=== PATIENT | female | born 1950 | race Hispanic/Latino ===

== ENCOUNTER 2017-06-26 13:39 | Observation (INO) | payer OTHER ==
[~2017-06-26] VITALS: Ht 152.4 cm; Wt 58.2 kg
[~2017-06-26 13:39] MED LIST: ACET-66 PO; ATOR10 PO; CHOL500050 PO; EXEN2VIA SQ; LA/L175C PO; LISI-617 PO; MESA0.37 PO; METF-526 PO; PREN-18 PO; [UNRECOGNIZED DRUG - CODE] PO
[2017-06-26 14:17] LABS: BASOPHILS % (AUTO) 0.4 % (0.0-5.0); EOSINOPHILS % (AUTO) 1.3 % (0.0-8.0); LYMPHOCYTES % (AUTO) 29.6 % (21.0-51.0); MEAN CORPUSCULAR HEMOGLOBIN 29.6 pg (27.0-33.0); MEAN CORPUSCULAR HGB CONC 33.7 g/dL (32.0-36.0); MEAN CORPUSCULAR VOLUME 87.8 fL (79-99); MONOCYTES % (AUTO) 8.6 % (3.0-13.0); NEUTROPHILS % (AUTO) 60.1 % (40.0-77.0); PLATELET COUNT (AUTO) 301 K/uL (130-400); RED BLOOD CELL COUNT(AUTO) 4.55 MIL/uL (4.00-5.50); RED CELL DISTRIBUTION WIDTH 13.3 % (11.0-15.5); WHITE BLOOD COUNT (AUTO) 16.8 K/uL (4.8-10.8)
[2017-06-26 14:23] LABS: CREATININE 0.7 mg/dL (0.5-1.5); POTASSIUM 4.1 mmol/L (3.5-5.1)
[2017-06-26 14:27] LABS: ALBUMIN 3.4 g/dL (3.5-5.0); BILIRUBIN,TOTAL 0.3 mg/dL (0.2-1.0); TOTAL PROTEIN, SERUM 8.2 g/dL (6.0-8.3)
[2017-06-26 14:50] LABS: APPEARANCE,URINE Clear (CLEAR); BILIRUBIN,URINE Negative (NEGATIVE); COLOR,URINE Yellow (YELLOW); GLUCOSE, URINE (UA) Negative (NEGATIVE); KETONES,URINE Negative (NEGATIVE); LEUKOCYTE ESTERASE ,URINE Moderate (NEGATIVE); NITRATE,URINE Negative (NEGATIVE); OCCULT BLOOD,URINE Negative (NEGATIVE); PROTEIN,URINE Negative (NEGATIVE); UROBILINOGEN,URINE 0.2 mg/dL (0.2-1.0)
[2017-06-26 14:58] LABS: BACTERIA,URINE None Seen /HPF (None Seen); RBC,URINE 0-1 /HPF (0-1); SQUAMOUS EPITHELIAL CELL,UR 0-2 /HPF (0-2)
[2017-06-26] MEDS ORDERED: PREDNISONE 20 MG TABLET ONE (16:17)
[2017-06-26] MEDS ORDERED: METRONIDAZOLE 500 MG TABLET ONE (16:17)
[2017-06-26] MEDS ORDERED: LACTULOSE 20 GM/30 ML UDCUP PO SCH (17:15)
[2017-06-26] MEDS ORDERED: PEG 3350/NA SULF,BICARB,CL/KCL 4000 ML SOLN PO SCH (17:15)
[2017-06-26] MEDS ORDERED: MAGNESIUM CITRATE 296 ML SOLUTION PO SCH (17:15)
[2017-06-26 17:18] VITALS: BP 124/70
[2017-06-26] MEDS ORDERED: LACTULOSE 20 GM/30 ML UDCUP ONE (17:26)
[2017-06-26] MEDS ORDERED: DEXTROSE 50%-WATER 50 ML DISP.SYRIN IV PRN ×2 (17:45→22:30)
[2017-06-26] MEDS ORDERED: POTASSIUM CHLORIDE 20 MEQ ERTAB PO PRN ×2 (17:45→22:30)
[2017-06-26] MEDS ORDERED: ACETAMINOPHEN 325 MG TAB PO PRN ×2 (17:45)
[2017-06-26] MEDS ORDERED: GLUCAGON 1MG KIT 1 MG ML IM PRN ×2 (17:45→22:30)
[2017-06-26] MEDS ORDERED: TRAMADOL HCL 50 MG TABLET PO PRN (17:45)
[2017-06-26] MEDS ORDERED: POTASSIUM CHLORIDE 10% ELIXIR 20 MEQ/15 ML UDCUP PO PRN ×2 (17:45→22:30)
[2017-06-26] MEDS ORDERED: POTASSIUM CHLORIDE 20MEQ/100ML 100 ML IV PRN ×2 (17:45→22:30)
[2017-06-26] MEDS ORDERED: ONDANSETRON HCL 4 MG/2 ML VIAL IVP PRN (17:45)
[2017-06-26] MEDS ORDERED: LIDOCAINE HCL-MPF 1% 2ML VIAL IJ PRN (17:45)
[2017-06-26 18:07] LABS: HEMATOCRIT 38.3 % (36-48)
[2017-06-26] MEDS ORDERED: DULA0.75 SQ (18:37)
[2017-06-26] MEDS ORDERED: ADAL40PE SQ (18:40)
[2017-06-26 19:00] VITALS: BP 117/71
[2017-06-26] MEDS: LEVOFLOXACIN 500 MG TABLET PO SCH (20:02)
[2017-06-26] MEDS: SODIUM CHLORIDE 0.9% 1000ML 1,000 ML IV SCH (20:02)
[2017-06-26] MEDS: METRONIDAZOLE 500 MG TABLET PO SCH (20:02)
[2017-06-26] MEDS: MESALAMINE 4 GM/60 ML BOTTLE RC SCH (20:03)
[2017-06-26] MEDS: INSULIN R PO SSI SQ SCH (21:00)
[2017-06-26] MEDS ORDERED: LIDOCAINE HCL-MPF 1% 2ML VIAL IVP PRN (22:30)
[2017-06-26] MEDS: INSULIN HUMULIN R 100 UNIT/ML 3ML SQ SCH (22:30)
[2017-06-26 23:00] VITALS: BP 117/72
[2017-06-27] VITALS (22 sets, daily range): BP systolic 92–134; BP diastolic 40–77
[2017-06-27] MEDS: INSULIN HUMULIN R 100 UNIT/ML 3ML SQ SCH ×3 (04:30→16:30)
[2017-06-27 06:06] LABS: MEAN CORPUSCULAR HEMOGLOBIN 29.6 pg (27.0-33.0); MEAN CORPUSCULAR HGB CONC 33.7 g/dL (32.0-36.0); PLATELET COUNT (AUTO) 352 K/uL (130-400); RED BLOOD CELL COUNT(AUTO) 4.32 MIL/uL (4.00-5.50); RED CELL DISTRIBUTION WIDTH 13.1 % (11.0-15.5)
[2017-06-27 06:17] LABS: CREATININE 0.9 mg/dL (0.5-1.5); INR 0.95 (0.85-1.15); POTASSIUM 3.9 mmol/L (3.5-5.1)
[2017-06-27] MEDS: INSULIN R PO SSI SQ SCH ×4 (07:30→21:09)
[2017-06-27] MEDS: SODIUM CHLORIDE 0.9% 1000ML 1,000 ML IV SCH (08:52)
[2017-06-27] MEDS: METRONIDAZOLE 500 MG TABLET PO SCH ×3 (09:00→20:58)
[2017-06-27] MEDS ORDERED: PROPOFOL 10 MG/ML 20ML VIAL IV ONE (11:06)
[2017-06-27] MEDS: PREDNISONE 20 MG TABLET PO SCH (16:00)
[2017-06-27] MEDS: PRENATAL VITAMIN RX TABLET PO SCH (16:00)
[2017-06-27] MEDS: LEVOFLOXACIN 500 MG TABLET PO SCH (17:42)
[2017-06-27] MEDS: MESALAMINE 4 GM/60 ML BOTTLE RC SCH (20:58)
[2017-06-28 00:25] VITALS: BP 91/52
[2017-06-28 04:25] VITALS: BP 91/50
[2017-06-28] MEDS: INSULIN R PO SSI SQ SCH ×2 (05:34→11:30)
[2017-06-28 05:46] LABS: MEAN CORPUSCULAR HEMOGLOBIN 30.9 pg (27.0-33.0); MEAN CORPUSCULAR HGB CONC 35.1 g/dL (32.0-36.0); MEAN CORPUSCULAR VOLUME 88.2 fL (79-99); PLATELET COUNT (AUTO) 319 K/uL (130-400); RED BLOOD CELL COUNT(AUTO) 4.09 MIL/uL (4.00-5.50); RED CELL DISTRIBUTION WIDTH 13.1 % (11.0-15.5); WHITE BLOOD COUNT (AUTO) 9.2 K/uL (4.8-10.8)
[2017-06-28 05:50] LABS: CREATININE 0.8 mg/dL (0.5-1.5); POTASSIUM 3.8 mmol/L (3.5-5.1)
[2017-06-28 08:12] VITALS: BP 91/52
[2017-06-28] MEDS: METRONIDAZOLE 500 MG TABLET PO SCH ×2 (09:11→14:29)
[2017-06-28] MEDS: PRENATAL VITAMIN RX TABLET PO SCH (09:11)
[2017-06-28] MEDS: PREDNISONE 20 MG TABLET PO SCH (09:11)
[2017-06-28] MEDS ORDERED: MESA4ENE4 RC (09:37)
[2017-06-28 11:50] VITALS: BP 110/57
[2017-06-29] MEDS ORDERED: PREDNISONE 10 MG TABLET PO SCH (09:00)
[2017-07-06] MEDS ORDERED: PREDNISONE 20 MG TABLET PO SCH (09:00)
[2017-07-11] MEDS ORDERED: ADALIMUMAB 40 MG SQ SCH (09:00)
[2017-07-13] MEDS ORDERED: PREDNISONE 10 MG TABLET PO SCH (09:00)
[2017-07-20] MEDS ORDERED: PREDNISONE 5 MG TABLET PO SCH (09:00)
[2017-07-27] MEDS ORDERED: PREDNISONE 5 MG TABLET PO SCH (09:00)
== END 2017-06-28 15:30 | disposition home or self-care (01) ==
LOC: EDH 13:39 → EDHIP 15:25 → 3BH 17:06
PROVIDERS: ADMIT Internal Medicine; ATTEND Internal Medicine
DX: K51.90 Ulcerative colitis, unspecified, without complications (principal); A09 Infectious gastroenteritis and colitis, unspecified; D12.5 Benign neoplasm of sigmoid colon; K63.5 Polyp of colon; K63.89 Other specified diseases of intestine; K62.89 Other specified diseases of anus and rectum; E11.65 Type 2 diabetes mellitus with hyperglycemia; D72.829 Elevated white blood cell count, unspecified; E78.5 Hyperlipidemia, unspecified; N39.0 Urinary tract infection, site not specified; Z90.710 Acquired absence of both cervix and uterus; Z80.0 Family history of malignant neoplasm of digestive organs; Z83.3 Family history of diabetes mellitus; Z86.010 Personal history of colon polyps; Z90.721 Acquired absence of ovaries, unilateral
CPT/HCPCS: 36415 ×3; 45380; 45385; 71046; 80048 ×2; 80053; 81001; 82948 ×8; 85014; 85018; 85025; 85027 ×2; 85610; 85651; 86850; 86900; 86901; 87046; 87177; 87205; 88305; 88312; 96372; 99285; G0378 ×48; J1815; J2405; J2704; J7030; 96360; 96361

== ENCOUNTER 2017-07-29 09:32 | Inpatient (IN) | payer OTHER ==
[~2017-07-29] VITALS: Ht 152.4 cm; Wt 57.2 kg
[~2017-07-29 09:32] MED LIST changes: +ADAL40PE SQ; -ATOR10 PO; +DULA0.75 SQ; -EXEN2VIA SQ; -LA/L175C PO; -LISI-617 PO; -MESA0.37 PO; +MESA4ENE4 RC; -METF-526 PO; -[UNRECOGNIZED DRUG - CODE] PO
[2017-07-29 10:09] LABS: BASOPHILS % (AUTO) 0.3 % (0.0-5.0); EOSINOPHILS % (AUTO) 0.1 % (0.0-8.0); HEMATOCRIT 38.3 % (36-48); LYMPHOCYTES % (AUTO) 23.8 % (21.0-51.0); MEAN CORPUSCULAR HEMOGLOBIN 29.6 pg (27.0-33.0); MEAN CORPUSCULAR VOLUME 87.2 fL (79-99); MONOCYTES % (AUTO) 11.8 % (3.0-13.0); PLATELET COUNT (AUTO) 399 K/uL (130-400); RED BLOOD CELL COUNT(AUTO) 4.39 MIL/uL (4.00-5.50); WHITE BLOOD COUNT (AUTO) 16.3 K/uL (4.8-10.8)
[2017-07-29 10:16] LABS: CREATININE 0.9 mg/dL (0.5-1.5); POTASSIUM 3.3 mmol/L (3.5-5.1)
[2017-07-29 10:22] LABS: ALBUMIN 2.8 g/dL (3.5-5.0); BILIRUBIN,TOTAL 0.5 mg/dL (0.2-1.0); TOTAL PROTEIN, SERUM 8.4 g/dL (6.0-8.3)
[2017-07-29 10:40] LABS: APPEARANCE,URINE Clear (CLEAR); BILIRUBIN,URINE Negative (NEGATIVE); COLOR,URINE Dark Yellow (YELLOW); GLUCOSE, URINE (UA) TRACE mg/dL (NEGATIVE); KETONES,URINE 15 mg/dL (NEGATIVE); LEUKOCYTE ESTERASE ,URINE Trace (NEGATIVE); NITRATE,URINE Negative (NEGATIVE); OCCULT BLOOD,URINE Small (NEGATIVE); PH,URINE 5.5 (5.0-8.0); PROTEIN,URINE POS 1+ (NEGATIVE)
[2017-07-29 11:15] LABS: BACTERIA,URINE Rare /HPF (None Seen); MUCUS,URINE Moderate LPF (None Seen); RBC,URINE 0-1 /HPF (0-1); SQUAMOUS EPITHELIAL CELL,UR Rare /HPF (0-2)
[2017-07-29] MEDS ORDERED: SODIUM CHLORIDE 0.9% 1000ML 1,000 ML IV ONE ×2 (11:24→15:25)
[2017-07-29] MEDS ORDERED: SODIUM CHLORIDE 0.9% 50 ML IV ONE (13:01)
[2017-07-29] MEDS ORDERED: CEFTRIAXONE SODIUM 1 GM ONE (13:01)
[2017-07-29] MEDS ORDERED: ZOSYN 3.375GM+NS 50ML 50 ML IV ONE (15:25)
[2017-07-29 16:50] VITALS: BP 133/54
[2017-07-29] MEDS ORDERED: HYDROCODONE/ACETAMINOPHEN 5/325 MG TAB ONE (18:10)
[2017-07-29 19:40] VITALS: BP 99/55
[2017-07-29] MEDS ORDERED: ONDANSETRON 4 MG TABLET PO PRN (19:45)
[2017-07-29] MEDS ORDERED: ACETAMINOPHEN 325 MG TAB PO PRN (20:15)
[2017-07-29] MEDS ORDERED: LIDOCAINE HCL-MPF 1% 2ML VIAL IVP PRN (20:15)
[2017-07-29] MEDS ORDERED: POTASSIUM CHLORIDE 20MEQ/100ML 100 ML IV PRN (20:15)
[2017-07-29] MEDS ORDERED: POTASSIUM CHLORIDE 10% ELIXIR 20 MEQ/15 ML UDCUP PO PRN ×2 (20:15)
[2017-07-29] MEDS ORDERED: POTASSIUM CHLORIDE 20 MEQ ERTAB PO PRN ×2 (20:15)
[2017-07-29] MEDS: INSULIN HUMULIN R 100 UNIT/ML 3ML SQ SCH (21:00)
[2017-07-29] MEDS: ZOSYN 3.375GM+NS 50ML 50 ML IV SCH (23:19)
[2017-07-30 00:09] VITALS: BP 115/59
[2017-07-30 04:00] VITALS: BP 111/58
[2017-07-30] MEDS: INSULIN HUMULIN R 100 UNIT/ML 3ML SQ SCH ×4 (05:56→20:12)
[2017-07-30] MEDS: ZOSYN 3.375GM+NS 50ML 50 ML IV SCH ×3 (06:01→23:22)
[2017-07-30 08:01] VITALS: BP 106/51
[2017-07-30] MEDS: SODIUM CHLORIDE 0.9% 1000ML 1,000 ML IV SCH ×3 (11:05→21:11)
[2017-07-30 11:37] VITALS: BP 94/54
[2017-07-30] MEDS ORDERED: ACETAMINOPHEN EXTRA STRENGTH 500 MG TABLET PO PRN (13:15)
[2017-07-30] MEDS ORDERED: PHARMACY COMMUNICATION MISC SCH (13:15)
[2017-07-30] MEDS ORDERED: COMPOUND PO MISCELLANEOUS 1 EACH MISC MISC PRN (13:45)
[2017-07-30 16:39] VITALS: BP 105/56
[2017-07-30] MEDS: VANCOMYCIN 250MG/5ML ORAL SOLUTION 40ML PO SCH ×4 (18:31→23:22)
[2017-07-30 19:00] VITALS: BP 103/60
[2017-07-31] VITALS: BP 103/60
[2017-07-31 04:00] VITALS: BP 95/61
[2017-07-31] MEDS: SODIUM CHLORIDE 0.9% 1000ML 1,000 ML IV SCH ×2 (04:31→11:18)
[2017-07-31 04:44] LABS: MEAN CORPUSCULAR HGB CONC 33.6 g/dL (32.0-36.0); MEAN CORPUSCULAR VOLUME 86.3 fL (79-99); PLATELET COUNT (AUTO) 385 K/uL (130-400); RED BLOOD CELL COUNT(AUTO) 3.83 MIL/uL (4.00-5.50); RED CELL DISTRIBUTION WIDTH 13.1 % (11.0-15.5)
[2017-07-31 05:06] LABS: ALBUMIN 2.2 g/dL (3.5-5.0); BILIRUBIN,TOTAL 0.3 mg/dL (0.2-1.0); CREATININE 0.7 mg/dL (0.5-1.5); MAGNESIUM 1.9 mg/dL (1.80-2.40); PHOSPHORUS 2.8 mg/dL (2.5-4.9); TOTAL PROTEIN, SERUM 6.8 g/dL (6.0-8.3)
[2017-07-31 05:08] LABS: POTASSIUM 2.8 mmol/L (3.5-5.1)
[2017-07-31] MEDS: POTASSIUM CHLORIDE 20MEQ/100ML 100 ML IV PRN ×3 (05:24→23:05)
[2017-07-31] MEDS: LIDOCAINE HCL-MPF 1% 2ML VIAL IVP PRN ×3 (05:24→23:05)
[2017-07-31] MEDS: INSULIN HUMULIN R 100 UNIT/ML 3ML SQ SCH ×4 (05:26→21:46)
[2017-07-31] MEDS: ZOSYN 3.375GM+NS 50ML 50 ML IV SCH ×2 (06:04→15:11)
[2017-07-31] MEDS: VANCOMYCIN 250MG/5ML ORAL SOLUTION 40ML PO SCH ×8 (09:36→21:39)
[2017-07-31] MEDS: FE FUMARATE/FA/MV, MIN COMB#15 1 TAB PO SCH (09:36)
[2017-07-31] MEDS ORDERED: DIATR MEGLU/DIATRIZOATE SODIUM 30 ML BOTTLE ONE ×2 (10:40→11:16)
[2017-07-31 11:00] VITALS: BP 113/69
[2017-07-31] MEDS: METHYLPREDNISOLONE SOD SUCC 40MG/ML 1ML IVP SCH ×2 (15:12→21:37)
[2017-07-31] MEDS ORDERED: MAGNESIUM 2GM PREMIX 50ML 50 ML IV SCH (15:45)
[2017-07-31 16:00] VITALS: BP 118/62
[2017-07-31] MEDS: METRONIDAZOLE 500 MG TABLET PO SCH ×2 (18:16→23:04)
[2017-07-31 19:50] VITALS: BP 109/59
[2017-07-31 23:45] VITALS: BP 105/62
[2017-08-01] MEDS: METHYLPREDNISOLONE SOD SUCC 40MG/ML 1ML IVP SCH ×2 (02:28→08:14)
[2017-08-01] MEDS: POTASSIUM CHLORIDE 20MEQ/100ML 100 ML IV PRN (02:29)
[2017-08-01] MEDS: LIDOCAINE HCL-MPF 1% 2ML VIAL IVP PRN (02:36)
[2017-08-01] MEDS: SODIUM CHLORIDE 0.9% 1000ML 1,000 ML IV SCH ×3 (02:36→20:30)
[2017-08-01 03:55] VITALS: BP 102/56
[2017-08-01 05:50] LABS: HEMATOCRIT 32.9 % (36-48); MEAN CORPUSCULAR HEMOGLOBIN 30.1 pg (27.0-33.0); MEAN CORPUSCULAR HGB CONC 34.9 g/dL (32.0-36.0); MEAN CORPUSCULAR VOLUME 86.3 fL (79-99); PLATELET COUNT (AUTO) 392 K/uL (130-400); RED BLOOD CELL COUNT(AUTO) 3.81 MIL/uL (4.00-5.50); WHITE BLOOD COUNT (AUTO) 5.1 K/uL (4.8-10.8)
[2017-08-01 05:57] LABS: CREATININE 0.6 mg/dL (0.5-1.5); MAGNESIUM 2.4 mg/dL (1.80-2.40); PHOSPHORUS 2.8 mg/dL (2.5-4.9); POTASSIUM 3.8 mmol/L (3.5-5.1)
[2017-08-01] MEDS: INSULIN HUMULIN R 100 UNIT/ML 3ML SQ SCH ×4 (06:59→20:33)
[2017-08-01 07:30] VITALS: BP 103/60
[2017-08-01] MEDS: METRONIDAZOLE 500 MG TABLET PO SCH ×3 (08:14→23:15)
[2017-08-01] MEDS: VANCOMYCIN 250MG/5ML ORAL SOLUTION 40ML PO SCH ×6 (08:14→20:31)
[2017-08-01] MEDS: FE FUMARATE/FA/MV, MIN COMB#15 1 TAB PO SCH (08:14)
[2017-08-01 11:00] VITALS: BP 106/64
[2017-08-01 16:00] VITALS: BP 93/66
[2017-08-01 20:10] VITALS: BP 98/54
[2017-08-01 23:45] VITALS: BP 96/61
[2017-08-02 04:20] VITALS: BP 108/60
[2017-08-02] MEDS: METRONIDAZOLE 500 MG TABLET PO SCH ×2 (05:32→15:41)
[2017-08-02] MEDS: SODIUM CHLORIDE 0.9% 1000ML 1,000 ML IV SCH ×2 (05:32→15:41)
[2017-08-02 05:54] LABS: HEMATOCRIT 27.9 % (36-48); MEAN CORPUSCULAR HEMOGLOBIN 29.7 pg (27.0-33.0); MEAN CORPUSCULAR HGB CONC 34.4 g/dL (32.0-36.0); MEAN CORPUSCULAR VOLUME 86.5 fL (79-99); PLATELET COUNT (AUTO) 378 K/uL (130-400); RED BLOOD CELL COUNT(AUTO) 3.23 MIL/uL (4.00-5.50); RED CELL DISTRIBUTION WIDTH 13.3 % (11.0-15.5); WHITE BLOOD COUNT (AUTO) 12.3 K/uL (4.8-10.8)
[2017-08-02] MEDS: INSULIN HUMULIN R 100 UNIT/ML 3ML SQ SCH ×3 (06:22→17:04)
[2017-08-02 07:30] VITALS: BP 96/52
[2017-08-02] MEDS: FE FUMARATE/FA/MV, MIN COMB#15 1 TAB PO SCH (09:34)
[2017-08-02] MEDS: VANCOMYCIN 250MG/5ML ORAL SOLUTION 40ML PO SCH ×6 (09:35→17:44)
[2017-08-02 11:00] VITALS: BP 97/54
[2017-08-02 16:00] VITALS: BP 103/55
[2017-08-02] MEDS ORDERED: VANC250C13 PO (18:34)
[2017-08-02] MEDS ORDERED: METR500T PO (18:34)
[2017-08-02 20:00] VITALS: BP 99/57
[2017-08-06] MEDS ORDERED: Dulaglutide (Trulicity) 0.75 MG SQ SCH (09:00)
[2017-08-06] MEDS ORDERED: ERGOCALCIFEROL (VITAMIN D2) 50,000 UNIT CAPSULE PO SCH (09:00)
== END 2017-08-02 20:35 | disposition home or self-care (01) | DRG 872 ==
LOC: EDH 09:32 → EDHIP 14:38 → 4CH 16:12 → 4BH 07-30 18:44
PROVIDERS: ADMIT Internal Medicine Critical Care Medicine; ATTEND Internal Medicine Critical Care Medicine
DX: A41.9 Sepsis, unspecified organism (principal); A04.72 Enterocolitis due to Clostridium difficile, not specified as recurrent; E44.0 Moderate protein-calorie malnutrition; K51.90 Ulcerative colitis, unspecified, without complications; N39.0 Urinary tract infection, site not specified; D89.9 Disorder involving the immune mechanism, unspecified; E11.9 Type 2 diabetes mellitus without complications; E87.8 Other disorders of electrolyte and fluid balance, not elsewhere classified; Z68.24 Body mass index [BMI] 24.0-24.9, adult; Z88.8 Allergy status to other drugs, medicaments and biological substances
CPT/HCPCS: 36415; 71045; 74176; 80048; 80053; 81001; 82948; 83605; 83735; 83993; 84100; 84132; 85025; 85027; 85651; 86141; 86480; 87040; 87088; 87186; 87324; 87507; J0696; J1815; J2543; J2920; J3370; J3475; J3480; J3490; J7030; Q9963

== ENCOUNTER 2022-05-26 08:41 | Inpatient (IN) | payer OTHER ==
[~2022-05-26] VITALS: Ht 152.4 cm; Wt 57.2 kg
[~2022-05-26 08:41] MED LIST changes: -ADAL40PE SQ; -MESA4ENE4 RC; +METR500T PO; +VANC250C13 PO
[2022-05-26] MEDS ORDERED: LACTATED RINGERS 1000ML 1,000 ML IV ONE (09:00)
[2022-05-26] MEDS ORDERED: ONDANSETRON 4MG INJ IVP ONE (09:00)
[2022-05-26] MEDS ORDERED: MORPHINE 2 MG SYG IVP ONE (09:00)
[2022-05-26] MEDS ORDERED: KETOROLAC 15MG/ML VIAL (15MG/ML) IV ONE (09:00)
[2022-05-26 09:15] LABS: BASOPHILS % (AUTO) 0.1 % (0.0-5.0); EOSINOPHILS % (AUTO) 0.1 % (0.0-8.0); HEMATOCRIT 41.3 % (36-48); LYMPHOCYTES % (AUTO) 25.1 % (21.0-51.0); MEAN CORPUSCULAR HEMOGLOBIN 29.8 pg (27.0-33.0); MEAN CORPUSCULAR HGB CONC 35.1 g/dL (32.0-36.0); MONOCYTES % (AUTO) 7.4 % (3.0-13.0); NEUTROPHILS % (AUTO) 66.8 % (40.0-77.0); PLATELET COUNT (AUTO) 355 K/uL (130-400); RED BLOOD CELL COUNT(AUTO) 4.86 MIL/uL (4.00-5.50); RED CELL DISTRIBUTION WIDTH 12.4 % (11.0-15.5); WHITE BLOOD COUNT (AUTO) 13.8 K/uL (4.8-10.8)
[2022-05-26 09:35] LABS: ALBUMIN 4.1 g/dL (3.5-5.0); CREATININE 0.9 mg/dL (0.5-1.5)
[2022-05-26 09:42] LABS: APPEARANCE,URINE CLEAR (CLEAR); BILIRUBIN,URINE NEGATIVE (NEGATIVE); COLOR,URINE LIGHT-YELLOW (YELLOW); GLUCOSE, URINE (UA) >=1000 mg/dL (NEGATIVE); KETONES,URINE 40 mg/dL (NEGATIVE); LEUKOCYTE ESTERASE ,URINE 250 Leu/uL (NEGATIVE); NITRATE,URINE NEGATIVE (NEGATIVE); OCCULT BLOOD,URINE NEGATIVE (NEGATIVE); PH,URINE 6.5 (5.0-8.0); PROTEIN,URINE 20 mg/dL (NEGATIVE); UROBILINOGEN,URINE 0.2 mg/dL (0.2-1.0)
[2022-05-26 09:46] LABS: POTASSIUM 2.8 mmol/L (3.5-5.1)
[2022-05-26 09:51] LABS: MUCUS,URINE RARE LPF (None Seen)
[2022-05-26 09:58] LABS: BACTERIA,URINE Rare /HPF (None Seen)
[2022-05-26] MEDS ORDERED: KCL 20 MEQ ERTAB PO ONE (10:00)
[2022-05-26 10:21] LABS: CRP QUANTITATIVE < 2.00 mg/L (0.00-9.0)
[2022-05-26] MEDS ORDERED: CEFTRIAXONE 1G VIAL IVP ONE (10:30)
[2022-05-26] MEDS ORDERED: POTASSIUM CHLORIDE 10% ELIXIR 20 MEQ/15 ML UDCUP PO PRN ×2 (12:00→18:00)
[2022-05-26] MEDS ORDERED: GLUCAGON 1MG KIT 1 MG ML IM PRN ×2 (12:00→18:00)
[2022-05-26] MEDS ORDERED: LIDOCAINE HCL-MPF 1% 2ML VIAL IV PRN ×4 (12:00→18:00)
[2022-05-26] MEDS ORDERED: DEXTROSE 50%-WATER 50 ML DISP.SYRIN IV PRN ×2 (12:00→18:00)
[2022-05-26] MEDS ORDERED: MAGNESIUM 2GM PREMIX 50ML 50 ML IV PRN ×2 (12:00→18:00)
[2022-05-26] MEDS ORDERED: ACETAMINOPHEN 650 MG SUPPOSITORY RC PRN (12:00)
[2022-05-26] MEDS ORDERED: CLONIDINE HCL 0.1 MG TABLET PO PRN (12:00)
[2022-05-26] MEDS ORDERED: HYDRALAZINE 20MG/ML VIAL IV PRN (12:00)
[2022-05-26] MEDS ORDERED: POTASSIUM CHLORIDE 20MEQ/100ML 100 ML IV PRN ×4 (12:00→18:00)
[2022-05-26] MEDS ORDERED: KCL 20 MEQ ERTAB PO PRN ×2 (12:00→18:00)
[2022-05-26] MEDS ORDERED: LACTULOSE 20 GM/30 ML UDCUP PO PRN (12:00)
[2022-05-26] MEDS ORDERED: ONDANSETRON 4MG INJ IVP PRN (12:00)
[2022-05-26] MEDS ORDERED: DOCUSATE SODIUM 100 MG CAP PO PRN (12:00)
[2022-05-26] MEDS ORDERED: ACETAMINOPHEN 325 MG TAB PO PRN (12:00)
[2022-05-26] MEDS: MORPHINE 2 MG SYG IVP PRN ×2 (12:57→18:58)
[2022-05-26] MEDS: INSULIN HUMULIN R 100 UNIT/ML 3ML SQ SCH ×2 (16:30→21:00)
[2022-05-26] MEDS ORDERED: MAGNESIUM 2GM PREMIX 50ML 50 ML IV SCH (17:00)
[2022-05-26] MEDS ORDERED: 0.9%NACL 1000ML 1,000 ML IV SCH (17:00)
[2022-05-26] MEDS ORDERED: LACTATED RINGERS 1000ML 1,000 ML IV SCH (17:00)
[2022-05-26] MEDS ORDERED: POTASSIUM CHLORIDE 10MEQ/100ML 100 ML IV PRN (17:00)
[2022-05-26] MEDS ORDERED: INSULIN REGULAR, HUMAN 3ML 100 UNIT in 0.9%NACL 100ML 100 ML IV SCH ×2 (17:00)
[2022-05-26 17:12] LABS: ABG BASE EXCESS 1.1 mmol/L (-2.0-3.0); ABG HCO3 23.3 mmol/L (21.0-28.0); ABG PCO2 31 mmHg (32-45)
[2022-05-26 17:13] LABS: CREATININE 0.7 mg/dL (0.5-1.5); POTASSIUM 3.3 mmol/L (3.5-5.1)
[2022-05-26] MEDS ORDERED: INSULIN REGULAR, HUMAN 3ML 100 UNIT in 0.9%NACL 100ML 99 ML IV PRN ×2 (18:00)
[2022-05-26] MEDS ORDERED: ROSU10TA28 PO (18:25)
[2022-05-26 18:52] LABS: CHOLESTEROL 254 mg/dL (<200); HDL CHOLESTEROL 69 mg/dL (35-85); LDL DIRECT 154 mg/dL (0-99); TRIGLYCERIDES 119 mg/dL (30-200)
[2022-05-26] MEDS: CEFTRIAXONE 2GM VIAL IVP SCH (18:57)
[2022-05-26] MEDS: D5W-1/2 NS/20MEQ KCL 1,000 ML IV SCH (19:23)
[2022-05-26 21:00] VITALS: BP 154/55
[2022-05-26] MEDS: TRAMADOL HCL 50 MG TABLET PO PRN (21:30)
[2022-05-26] MEDS: INSULIN GLARGINE 100 UNITS/ML 10 ML VIAL SQ SCH (21:36)
[2022-05-26 21:51] VITALS: BP 154/66
[2022-05-26 22:00] VITALS: BP 149/86
[2022-05-26 22:18] VITALS: BP 151/71
[2022-05-26 22:45] LABS: CREATININE 0.7 mg/dL (0.5-1.5)
[2022-05-26 22:47] LABS: POTASSIUM 2.8 mmol/L (3.5-5.1)
[2022-05-26 23:00] VITALS: BP 159/86
[2022-05-27] VITALS (11 sets, daily range): BP systolic 120–175; BP diastolic 59–85
[2022-05-27 04:17] LABS: BASOPHILS % (AUTO) 0.3 % (0.0-5.0); EOSINOPHILS % (AUTO) 0.3 % (0.0-8.0); HEMATOCRIT 38.1 % (36-48); LYMPHOCYTES % (AUTO) 24.2 % (21.0-51.0); MEAN CORPUSCULAR HEMOGLOBIN 29.9 pg (27.0-33.0); MEAN CORPUSCULAR HGB CONC 34.6 g/dL (32.0-36.0); MEAN CORPUSCULAR VOLUME 86.4 fL (79-99); MONOCYTES % (AUTO) 7.1 % (3.0-13.0); NEUTROPHILS % (AUTO) 67.6 % (40.0-77.0); PLATELET COUNT (AUTO) 339 K/uL (130-400); RED BLOOD CELL COUNT(AUTO) 4.41 MIL/uL (4.00-5.50); RED CELL DISTRIBUTION WIDTH 12.6 % (11.0-15.5); WHITE BLOOD COUNT (AUTO) 14.7 K/uL (4.8-10.8)
[2022-05-27 04:18] LABS: HEMOGLOBIN A1C 7.9 % (4.0-6.0)
[2022-05-27 04:37] LABS: CREATININE 0.4 mg/dL (0.5-1.5); MAGNESIUM 1.6 mg/dL (1.80-2.40); POTASSIUM 4.2 mmol/L (3.5-5.1); THYROID STIMULATING HORMONE 1.51 uIU/mL (0.36-3.74)
[2022-05-27] MEDS: INSULIN HUMULIN R 100 UNIT/ML 3ML SQ SCH ×4 (06:30→20:23)
[2022-05-27] MEDS: INSULIN GLARGINE 100 UNITS/ML 10 ML VIAL SQ SCH ×2 (06:30→20:27)
[2022-05-27] MEDS: D5W-1/2 NS/20MEQ KCL 1,000 ML IV SCH (06:53)
[2022-05-27] MEDS: ENOXAPARIN SODIUM 40 MG/0.4 ML SYRINGE SQ SCH (08:33)
[2022-05-27] MEDS: PANTOPRAZOLE 40 MG TAB DR PO SCH (08:34)
[2022-05-27] MEDS ORDERED: INSULIN GLARGINE 100 UNITS/ML 10 ML VIAL SQ SCH (10:00)
[2022-05-27] MEDS: LISINOPRIL 10 MG TABLET PO SCH (10:01)
[2022-05-27] MEDS: LACTATED RINGERS 1000ML 1,000 ML IV SCH ×2 (10:06→22:33)
[2022-05-27] MEDS ORDERED: ERGOCALCIFEROL (VITAMIN D2) 50,000 UNIT CAPSULE PO SCH (10:07)
[2022-05-27] MEDS ORDERED: METOPROLOL TARTRATE 1 MG/ML 5ML VIAL IV ONE (10:08)
[2022-05-27] MEDS: PRENATAL VITAMIN RX TABLET PO SCH (10:33)
[2022-05-27] MEDS: CEFTRIAXONE 2GM VIAL IVP SCH (17:13)
[2022-05-27] MEDS ORDERED: ATORVASTATIN 20 MG TABLET PO SCH (21:00)
[2022-05-27] MEDS: TRAMADOL HCL 50 MG TABLET PO PRN (22:35)
[2022-05-27] MEDS: MORPHINE 2 MG SYG IVP PRN (23:14)
[2022-05-28] VITALS: BP 127/67
[2022-05-28] MEDS: LACTATED RINGERS 1000ML 1,000 ML IV SCH (03:52)
[2022-05-28] MEDS: MORPHINE 2 MG SYG IVP PRN ×5 (03:52→21:26)
[2022-05-28 04:00] VITALS: BP 145/77
[2022-05-28] MEDS: INSULIN HUMULIN R 100 UNIT/ML 3ML SQ SCH ×4 (05:18→21:11)
[2022-05-28 05:42] LABS: BASOPHILS % (AUTO) 0.4 % (0.0-5.0); EOSINOPHILS % (AUTO) 0.8 % (0.0-8.0); HEMATOCRIT 37.8 % (36-48); LYMPHOCYTES % (AUTO) 40.6 % (21.0-51.0); MEAN CORPUSCULAR HEMOGLOBIN 30.2 pg (27.0-33.0); MEAN CORPUSCULAR HGB CONC 34.1 g/dL (32.0-36.0); MEAN CORPUSCULAR VOLUME 88.5 fL (79-99); MONOCYTES % (AUTO) 9.1 % (3.0-13.0); NEUTROPHILS % (AUTO) 48.7 % (40.0-77.0); PLATELET COUNT (AUTO) 294 K/uL (130-400); RED BLOOD CELL COUNT(AUTO) 4.27 MIL/uL (4.00-5.50); RED CELL DISTRIBUTION WIDTH 12.9 % (11.0-15.5); WHITE BLOOD COUNT (AUTO) 11.3 K/uL (4.8-10.8)
[2022-05-28 05:57] LABS: CREATININE 0.5 mg/dL (0.5-1.5); POTASSIUM 3.6 mmol/L (3.5-5.1)
[2022-05-28] MEDS: INSULIN GLARGINE 100 UNITS/ML 10 ML VIAL SQ SCH ×2 (06:36→21:08)
[2022-05-28 07:30] VITALS: BP 134/66
[2022-05-28] MEDS: PANTOPRAZOLE 40 MG TAB DR PO SCH (08:14)
[2022-05-28] MEDS: LISINOPRIL 10 MG TABLET PO SCH (08:14)
[2022-05-28] MEDS: ENOXAPARIN SODIUM 40 MG/0.4 ML SYRINGE SQ SCH (08:16)
[2022-05-28] MEDS: PRENATAL VITAMIN RX TABLET PO SCH (08:20)
[2022-05-28 11:00] VITALS: BP 116/76
[2022-05-28 16:00] VITALS: BP 125/61
[2022-05-28] MEDS: CEFTRIAXONE 2GM VIAL IVP SCH (17:28)
[2022-05-28 20:16] VITALS: BP 123/57
[2022-05-28] MEDS ORDERED: GABAPENTIN 300 MG CAPSULE PO SCH (21:00)
[2022-05-29 00:12] VITALS: BP 135/56
[2022-05-29] MEDS: LACTATED RINGERS 1000ML 1,000 ML IV SCH ×2 (02:00→20:44)
[2022-05-29 03:56] VITALS: BP 127/54
[2022-05-29 06:07] LABS: CREATININE 0.7 mg/dL (0.5-1.5); POTASSIUM 3.4 mmol/L (3.5-5.1)
[2022-05-29] MEDS: INSULIN HUMULIN R 100 UNIT/ML 3ML SQ SCH ×4 (06:22→20:39)
[2022-05-29] MEDS: INSULIN GLARGINE 100 UNITS/ML 10 ML VIAL SQ SCH ×2 (06:25→20:40)
[2022-05-29 08:00] VITALS: BP 123/56
[2022-05-29] MEDS: LISINOPRIL 10 MG TABLET PO SCH (09:05)
[2022-05-29] MEDS: PANTOPRAZOLE 40 MG TAB DR PO SCH (09:05)
[2022-05-29] MEDS: ENOXAPARIN SODIUM 40 MG/0.4 ML SYRINGE SQ SCH (09:12)
[2022-05-29] MEDS: PRENATAL VITAMIN RX TABLET PO SCH (09:13)
[2022-05-29] MEDS: TRAMADOL HCL 50 MG TABLET PO PRN (09:23)
[2022-05-29 12:00] VITALS: BP 139/58
[2022-05-29 16:00] VITALS: BP 135/57
[2022-05-29] MEDS: CEFTRIAXONE 2GM VIAL IVP SCH (17:34)
[2022-05-29 20:00] VITALS: BP 109/49
[2022-05-29] MEDS ORDERED: CYCLOBENZAPRINE HCL 10 MG TABLET PO PRN (21:30)
[2022-05-30] VITALS: BP 117/49
[2022-05-30] MEDS: LACTATED RINGERS 1000ML 1,000 ML IV SCH (03:54)
[2022-05-30 04:00] VITALS: BP 121/46
[2022-05-30] MEDS: INSULIN HUMULIN R 100 UNIT/ML 3ML SQ SCH ×2 (06:17→11:45)
[2022-05-30] MEDS: INSULIN GLARGINE 100 UNITS/ML 10 ML VIAL SQ SCH (06:36)
[2022-05-30 07:30] VITALS: BP 137/60
[2022-05-30] MEDS: PANTOPRAZOLE 40 MG TAB DR PO SCH (08:27)
[2022-05-30] MEDS: PRENATAL VITAMIN RX TABLET PO SCH (08:27)
[2022-05-30] MEDS: LISINOPRIL 10 MG TABLET PO SCH (08:27)
[2022-05-30] MEDS: ENOXAPARIN SODIUM 40 MG/0.4 ML SYRINGE SQ SCH (08:28)
[2022-05-30] MEDS: MORPHINE 2 MG SYG IVP PRN (08:35)
[2022-05-30 11:30] VITALS: BP 145/63
[2022-05-30 15:30] VITALS: BP 115/60
== END 2022-05-30 17:35 | DRG 871 ==
LOC: EDH 08:41 → EDHIP 11:43 → OBSVTOIN 11:43 → 2BH 20:22 → 3BH 05-27 11:35
PROVIDERS: ADMIT Internal Medicine Critical Care Medicine; ATTEND Internal Medicine Critical Care Medicine
DX: A41.9 Sepsis, unspecified organism (principal); E11.10 Type 2 diabetes mellitus with ketoacidosis without coma; N30.00 Acute cystitis without hematuria; Z20.822 Contact with and (suspected) exposure to COVID-19; M54.9 Dorsalgia, unspecified; M81.0 Age-related osteoporosis without current pathological fracture; E86.0 Dehydration; N28.1 Cyst of kidney, acquired; E87.6 Hypokalemia; M47.814 Spondylosis without myelopathy or radiculopathy, thoracic region; Z79.4 Long term (current) use of insulin; Z90.710 Acquired absence of both cervix and uterus; Z88.8 Allergy status to other drugs, medicaments and biological substances
CPT/HCPCS: 36415; 36600; 72128; 72131; 72146; 72148; 74176; 80048; 80053; 80061; 81001; 82140; 82803; 82948; 83036; 83690; 83735; 84100; 84132; 84145; 84439; 84443; 84481; 84484; 85025; 85378; 86140; 87088; 87635; 87804; 93005; 93970; 97039; G0378; J0696; J1650; J1815; J1885; J2405; J3475; J3480; J3490; J7030; J7120